=== PATIENT | male | born 1975 | race Caucasian/White ===

== ENCOUNTER → 2022-12-20 | Outpatient (CLI) | payer OTHER ==
--- NOTE | 2022-12-20 11:13 | Diagnostic Imaging Report ---
INDICATION: Neck pain, multiple falls. Frontal and lateral cervical radiographs performed with lateral views including flexion and extension. The neck is held neutrally in flexion. No pathological motion at flexion or extension maneuvers. No listhesis. There is lower cervical spondylosis with disc space narrowing, endplate sclerosis and anterior osteophytes. The prevertebral space normal. No fracture. IMPRESSION: Neck held in flexion neutrally with no listhesis or pathological motion. Mid to lower cervical degenerative changes to the discs, endplates and facets with no acute appearing abnormality. Dictated by: Dictated on workstation # [id number]
--- NOTE | 2022-12-20 11:38 | Diagnostic Imaging Report ---
HISTORY: Back pain, multiple falls. TECHNIQUE: 2 views of the thoracic spine COMPARISON: None FINDINGS: Alignment of the thoracic spine appears normal with no spondylolisthesis. Vertebral body heights and disc heights are generally preserved. No acute fracture is seen. The upper thoracic spine is not well seen on the lateral view due to overlapping structures. IMPRESSION: 1. No acute osseous abnormality is seen in the thoracic spine. Dictated by: Dictated on workstation # [id number]
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
--- NOTE | 2022-12-20 11:44 | Diagnostic Imaging Report ---
HISTORY: Low back pain. TECHNIQUE: Two views of the lumbar spine. COMPARISON: None. FINDINGS: There is mild right convex curvature of the lumbar spine centered at L4-L5. There are moderate degenerative changes at L4-L5 and mild degenerative change elsewhere in the lumbar spine. There is no spondylolisthesis. Vertebral body heights are preserved. No acute fracture is seen. Bilateral sacroiliac joints appear patent. IMPRESSION: 1. Degenerative changes in the lumbar spine, most notable at L4-L5 with mild right convex curvature. Dictated by: Dictated on workstation # [id number]
== END ==
LOC: RAD 08:54
PROVIDERS: ATTEND Family Medicine
DX: Z02.71 Encounter for disability determination (principal); M47.816 Spondylosis without myelopathy or radiculopathy, lumbar region; M43.8X6 Other specified deforming dorsopathies, lumbar region; M47.812 Spondylosis without myelopathy or radiculopathy, cervical region; M50.30 Other cervical disc degeneration, unspecified cervical region; M54.6 Pain in thoracic spine; M17.0 Bilateral primary osteoarthritis of knee; R29.6 Repeated falls
CPT/HCPCS: 72050; 72070; 72100